=== PATIENT | male | born 1950 | race Caucasian/White ===

== ENCOUNTER → 2017-04-21 | Outpatient (CLI) | payer MEDICARE, OTHER ==
[~2017-04-21] MED LIST: CITRACAL + BON1 EACH PO; DEXILANT60 MG PO; GLUCOSAMINE CH1 EAC1 PO; THERAGRAN-M1 TAB PO; VITAMIN B-121000 MCG PO; VITAMIN B-6100 MG PO; VITAMIN D-32000 UNIT PO
== END ==
LOC: LGSMG 16:35
DX: R07.9 Chest pain, unspecified (principal)

== ENCOUNTER → 2017-04-30 | Outpatient (CLI) | payer MEDICARE, OTHER | END | disposition disaster alternative care site (69) | LOC: GRAD 14:03 | DX: R07.9 Chest pain, unspecified (principal); I70.90 Unspecified atherosclerosis; K44.9 Diaphragmatic hernia without obstruction or gangrene; R91.1 Solitary pulmonary nodule ==